=== PATIENT | female | born 1950 | race Caucasian/White ===

== ENCOUNTER → 2019-01-21 | Outpatient (CLI) | payer MEDICARE ==
--- NOTE | 2019-01-21 14:43 | PCVCIMAG ---
APPROVED REPORT Study performed: 01/21/2019 13:14:59 EXAM: Comprehensive 2D, Doppler, and color-flow Echocardiogram Patient Location: Echo lab Room #: 3Status: routine BSA: 1.65 HR: 56 bpmBP: 140/80 mmHg Rhythm: Bradycardia Other Information Study Quality: Adequate Risk Factors: Cardiac Risk Factors: Hyperlipidemia Indications Atrial Fibrillation 2D Dimensions IVSd: 8.66 (7-11mm)LVOT Diam: 20.00 (18-24mm) LVDd: 43.62 mm PWd: 8.94 (7-11mm)Ascending Ao: 32.09 (22-36mm) LVDs: 28.17 (25-40mm) Left Atrium: 35.68 (27-40mm) Aortic Root: 28.46 mm LV Single Plane 4CH: 56.28 % LV Single Plane 2CH: 64.67 % Biplane EF: 61.0 % Volumes Left Atrial Volume (Systole) Single Plane 4CH: 46.81 mLSingle Plane 2CH: 44.62 mL LA ESV Index: 29.00 mL/m2 Aortic Valve AoV Peak [place].: 1.38 m/s AO Peak Gr.: 7.67 mmHgLVOT Max P.47 mmHg LVOT Max V: 1.17 m/s GAURAV Vmax: 2.53 cm2 AI Vmax: 4.31 m/s AI [place]: 1.63 m/s2 AI PHT: 765.93 ms Mitral Valve E/A Ratio: 1.2 MV Decel. Time: 370.73 ms MV E Max [place].: 0.61 m/s MV A [place].: 0.53 m/s TDI E/Lateral E': 7.63E/Medial E': 10.17 Medial E' [place].: 0.06 m/s Lateral E' [place].: 0.08 m/s Pulmonary Valve PV Peak [place].: 0.85 m/sPV Peak Gr.: 2.86 mmHg Pulmonary Vein P Vein S: 0.40 m/sP Vein A: 0.43 m/s P Vein D: 0.48 m/sP Vein A Dur.: 131.5 msec P Vein S/D Ratio: 0.83 Tricuspid Valve TR Peak [place].: 2.42 m/sRAP Estimate: 7.00 mmHg TR Peak Gr.: 23.47 mmHg PA Pressure: 30.00 mmHg Left Ventricle The left ventricle is normal size. There is normal LV segmental wall motion. There is normal left ventricular wall thickness. Left ventricular systolic function is normal. The left ventricular ejection fraction is within the normal range. LVEF is 60-65%. Right Ventricle The right ventricle is normal size. The right ventricular systolic function is normal. Atria The left atrium size is normal. The right atrium size is normal. Aortic Valve The aortic valve is minimally sclerotic Mild aortic regurgitation. There is no aortic valvular stenosis. Mitral Valve The mitral valve is normal in structure. Trace to mild mitral regurgitation. No evidence of mitral valve stenosis. Tricuspid Valve The tricuspid valve is normal in structure. Trace tricuspid regurgitation. Pulmonary artery pressure is 30 mmHg. Pulmonic Valve The pulmonary valve is normal in structure. Mild pulmonic regurgitation. Great Vessels The aortic root is normal in size. The ascending aorta is normal in size. IVC is normal in size and collapses >50% with inspiration. Pericardium There is no pericardial effusion. <Conclusion> Left ventricular systolic function is normal. There is normal LV segmental wall motion. LVEF is 60-65%. Normal diastolic function The aortic valve is minimally sclerotic. Mild aortic regurgitation. The mitral valve is normal in structure. Trace to mild mitral regurgitation. Trace tricuspid regurgitation. Pulmonary artery pressure of 30 mmHg. There is no pericardial effusion.
== END | disposition home or self-care (01) ==
LOC: PCVCIMAG 13:09
PROVIDERS: ATTEND Internal Medicine
DX: I08.8 Other rheumatic multiple valve diseases (principal); I48.0 Paroxysmal atrial fibrillation; E78.5 Hyperlipidemia, unspecified; J45.909 Unspecified asthma, uncomplicated; M81.0 Age-related osteoporosis without current pathological fracture; Z79.899 Other long term (current) drug therapy; Z88.8 Allergy status to other drugs, medicaments and biological substances; Z86.2 Personal history of diseases of the blood and blood-forming organs and certain disorders involving the immune mechanism; Z72.89 Other problems related to lifestyle
CPT/HCPCS: 93005; 93306; G0463

== ENCOUNTER → 2019-04-02 | Outpatient (CLI) | payer MEDICARE | END | disposition home or self-care (01) | LOC: PCVCCLINIC 10:00 | PROVIDERS: ATTEND Internal Medicine | DX: I48.0 Paroxysmal atrial fibrillation (principal); I10 Essential (primary) hypertension; E78.5 Hyperlipidemia, unspecified; J45.909 Unspecified asthma, uncomplicated; M81.0 Age-related osteoporosis without current pathological fracture; I34.0 Nonrheumatic mitral (valve) insufficiency; Z90.49 Acquired absence of other specified parts of digestive tract; Z90.710 Acquired absence of both cervix and uterus; Z79.899 Other long term (current) drug therapy; Z88.8 Allergy status to other drugs, medicaments and biological substances; Z86.2 Personal history of diseases of the blood and blood-forming organs and certain disorders involving the immune mechanism; Z72.89 Other problems related to lifestyle | CPT/HCPCS: 93005; G0463 ==